=== PATIENT | male | born 1955 | race Caucasian/White ===

== ENCOUNTER 2017-02-19 07:41 | Emergency (ER) | payer OTHER ==
[~2017-02-19] VITALS: Ht 162.6 cm; Wt 89.0 kg
[~2017-02-19 07:41] MED LIST: CHLO25CA9 PO
[2017-02-19 07:44] VITALS: Ht 162.6 cm; Wt 89.0 kg
--- NOTE | 2017-02-19 09:16 | ERD ---
ER Documentation Chief Complaint Date/Time DATE: 02/19/17 TIME: 09:14 Chief Complaint bingd etoh x 1 days, today uncontrolled moves on face HPI Patient is a 61-year-old male who presents with sudden onset, intermittent, involuntary spasms of the muscles in his face and chest for several hours. The patient states that he has had these symptoms in the past after binge drinking, and that they have intermittently recurred over the last 4 years. He states that he has been drinking heavily for the last 3 days. He denies any history of prior seizures. He denies drug use. He denies fall or head trauma. He denies experiencing alcohol withdrawal. ROS All systems reviewed and are negative except as per history of present illness. Medications Home Meds Active Scripts Chlordiazepoxide* (Chlordiazepoxide*) 25 Mg Capsule, 25 MG PO as directed for 5 Days, CAP 50mg PO TID for day one 50mg PO BID for day two 25mg PO BID for day three 25mg PO Daily for day four and five Prov:NAT MORELAND MD 08/04/16 Allergies Allergies: Coded Allergies: No Known Allergy (Unverified , 08/04/16) PMhx/Soc Past medical history: None Past surgical history: None Social history: Drinks alcohol intermittently, denies tobacco or illicit drugs. History of Surgery: No Anesthesia Reaction: No Hx Neurological Disorder: Yes (seizures (possible etoh related)) Hx Respiratory Disorders: No Hx Cardiac Disorders: Yes (htn ) Hx Psychiatric Problems: No Hx Miscellaneous Medical Probl: Yes (etoh abuse) Hx Alcohol Use: Yes (alcoholic x30 years, 2 "fifths" in 2 days) Hx Substance Use: No Hx Tobacco Use: No FmHx Family History: No coronary disease, No diabetes Physical Exam Vitals Vital Signs Date Time Temp Pulse Resp B/P Pulse Ox O2 Delivery O2 Flow Rate FiO2 02/19/17 07:44 98.1 98 18 152/98 99 Physical Exam Const: Alert, no acute distress Head: Atraumatic Eyes: Normal Conjunctiva, no pallor, no icterus ENT: Normal External Ears, Nose and Mouth. Mucous membranes moist Neck: Full range of motion..~ No meningismus. Resp: Clear to auscultation bilaterally Cardio: Regular rate and rhythm, no murmurs Abd: Soft, non tender, non distended. No rebound or guarding Skin: No petechiae or rashes Back: No midline or flank tenderness Ext: No cyanosis, or edema Neur: Awake and alert, cranial nerves II through XII intact bilaterally, strength and sensation full in 4 extremities. Involuntary spastic movements of the face, neck, and chest muscles bilaterally. Intermittent. No altered mental status during episodes. Normal muscle tone. Psych: Normal Mood and Affect Result Diagram: 02/19/17924 Results 24 hrs Laboratory Tests Test 02/19/17 09:25 Sodium Level 140mmol/L Potassium Level 3.8mmol/L Chloride Level 107mmol/L Carbon Dioxide Level 22mmol/L Anion Gap 15 Blood Urea Nitrogen 14mg/dl Creatinine 0.83mg/dl Glucose Level 86mg/dl Calcium Level 8.6mg/dl Current Medications Medications (Trade) Dose Ordered Sig/Riley Route PRN Reason Start Time Stop Time Status Last Admin Dose Admin Sodium Chloride (NS) 1,000 ml @ 1,000 mls/hr Q1H ONCE IV 02/19/17 09:30 02/19/17 10:29 DC 02/19/17 09:28 Lorazepam (Ativan) 2 mg ONCE ONCE IV 02/19/17 09:30 02/19/17 09:31 DC 02/19/17 09:28 Procedures/MDM MDM: Patient is a 61-year-old male who presents with involuntary muscle spasms of the face neck and chest after 3 days of heavy drinking. He states that he has had similar symptoms in the past in the setting of alcohol abuse. He does not have signs or symptoms of alcohol withdrawal. He has involuntary twitching of the muscles on exam. I have low suspicion for focal motor seizures. The patient states that the symptoms have occurred intermittently over the last 4 years. He has never been diagnosed with a seizure disorder provided anticonvulsant medication. He has normal electrolytes. He was given IV fluids and a dose of Ativan, and his symptoms have resolved. I will discharge him home with return precautions, and have advised him to abstain from alcohol. Departure Diagnosis: Primary Impression: Muscle spasms of neck Additional Impression: Alcohol abuse Condition: YU Norton MD Feb 19, 2017 09:16
[2017-02-19] MEDS ORDERED: SOD CHLORIDE 0.9% 1,000 ML IV ONE (09:30)
[2017-02-19] MEDS ORDERED: LORAZEPAM 2 MG INJ IV ONE (09:30)
[2017-02-19 09:50] LABS: CALCIUM 8.6 mg/dl (8.4-10.2); CREATININE 0.83 mg/dl (0.61-1.24); POTASSIUM 3.8 mmol/L (3.5-5.1)
== END 2017-02-19 11:18 | disposition home or self-care (01) ==
LOC: E/R 07:41
DX: M62.838 Other muscle spasm (principal); I10 Essential (primary) hypertension
CPT/HCPCS: 80048; 96374; J2060; J7030; Z7502

== ENCOUNTER 2017-03-20 08:34 | Emergency (ER) | payer OTHER ==
[~2017-03-20] VITALS: Ht 167.6 cm; Wt 83.6 kg
[2017-03-20 08:36] VITALS: Ht 167.6 cm; Wt 83.6 kg
[2017-03-20] MEDS ORDERED: SOD CHLORIDE 0.9% 1,000 ML IV STA (08:38)
[2017-03-20] MEDS ORDERED: ONDANSETRON 4 MG INJ IV STA (08:38)
--- NOTE | 2017-03-20 08:45 | ERD ---
ER Documentation Chief Complaint Date/Time DATE: 03/20/17 TIME: 08:45 Chief Complaint ALCOHOL WITHDRAWL SEIZURE AT HOME, BS-[id number] IN FIELD HPI Patient is a 61-year-old male who presents with sudden onset, intermittent, involuntary spasms of the muscles in his face and chest for several hours. The patient states that he has had these symptoms in the past after binge drinking, and that they have intermittently recurred over the last 4 years. He states that he has been drinking heavily for the last 3 days. He he states he has a history of seizures, but denies antiepileptic medication use. He denies drug use. He denies fall or head trauma. Patient denies fevers or chills, no vomiting or diarrhea, no paresis or paresthesias. Patient was transported here by EMS without further complications. ROS All systems reviewed and are negative except as per history of present illness. Medications Home Meds Active Scripts Chlordiazepoxide* (Chlordiazepoxide*) 25 Mg Capsule, 25 MG PO as directed for 5 Days, CAP 50mg PO TID for day one 50mg PO BID for day two 25mg PO BID for day three 25mg PO Daily for day four and five Prov:NAT MORELAND MD 08/04/16 Allergies Allergies: Coded Allergies: No Known Allergy (Unverified , 08/04/16) PMhx/Soc History of Surgery: No Anesthesia Reaction: No Hx Neurological Disorder: Yes (seizures (possible etoh related)) Hx Respiratory Disorders: No Hx Cardiac Disorders: Yes (htn ) Hx Psychiatric Problems: No Hx Miscellaneous Medical Probl: Yes (etoh abuse) Hx Alcohol Use: Yes (alcoholic x30 years, 2 "fifths" in 2 days) Hx Substance Use: No Hx Tobacco Use: No Smoking Status: Never smoker FmHx Family History: No diabetes Physical Exam Vitals Vital Signs Date Time Temp Pulse Resp B/P Pulse Ox O2 Delivery O2 Flow Rate FiO2 03/20/17 12:10 98.3 88 20 141/79 99 Room Air 03/20/17 11:00 98.3 87 20 143/69 98 Room Air 03/20/17 08:36 99.2 101 16 144/72 100 Physical Exam GENERAL: Well-developed, well-nourished, appears to be in alcohol withdrawal with oral facial spasms HEENT: Moist mucous membranes, pink conjunctiva, no cervical spine tenderness or step-off deformities, no goiter, no jaundice or icterus, extraocular movements intact without pain. No submandibular induration, and no pharyngeal erythema NEURO: Alert and oriented 3, cranial nerves II through XII intact bilaterally, pupils equal round reactive to light, no focal deficits or facial asymmetry, sensation intact distally Strength 5/5 in upper and lower extremities bilaterally, positive oral facial spasms and upper extremity tremors, no seizure activity CARDIAC: Tachycardic and regular, no murmurs rubs or gallops LUNGS: Clear bilaterally no wheezing crackles or stridor ABDOMEN: Soft nontender, no guarding, no rigidity, no rebound, no psoas sign no obturator sign. Normoactive bowel sounds SKIN: Warm and dry to touch, no abrasions, contusions, or hematomas, no lacerations, no ecchymosis, no target lesions, and without ulcers EXTREMITIES: No clubbing cyanosis or edema, calves are bilaterally symmetrical, no Homans sign, no popliteal cord sign. Distal pulses equal and bilateral PSYCH: Normal affect without agitation or irritability Result Diagram: 03/20/1746 03/20/1746 Results 24 hrs Laboratory Tests Test 03/20/17 08:46 White Blood Count 4.510^3/ul Red Blood Count 4.2010^6/ul Hemoglobin 9.4g/dl Hematocrit 30.9% Mean Corpuscular Volume 73.6fl Mean Corpuscular Hemoglobin 22.4pg Mean Corpuscular Hemoglobin Concent 30.4g/dl Red Cell Distribution Width 17.2% Platelet Count 62258^3/UL Mean Platelet Volume 9.0fl Neutrophils % 39.0% Lymphocytes % 47.9% Monocytes % 7.3% Eosinophils % 4.9% Basophils % 0.7% Nucleated Red Blood Cells % 0.0/100WBC Neutrophils # 1.810^3/ul Lymphocytes # 2.210^3/ul Monocytes # 0.310^3/ul Eosinophils # 0.210^3/ul Basophils # 0.010^3/ul Nucleated Red Blood Cells # 0.010^3/ul Sodium Level 149mmol/L Potassium Level 3.6mmol/L Chloride Level 107mmol/L Carbon Dioxide Level 22mmol/L Anion Gap 24 Blood Urea Nitrogen 13mg/dl Creatinine 0.73mg/dl Glucose Level 107mg/dl Calcium Level 8.0mg/dl Total Bilirubin 0.3mg/dl Direct Bilirubin 0.00mg/dl Indirect Bilirubin 0.3mg/dl Aspartate Amino Transf (AST/SGOT) 31IU/L Alanine Aminotransferase (ALT/SGPT) 38IU/L Alkaline Phosphatase 66IU/L Troponin I < 0.012ng/ml Total Protein 6.9g/dl Albumin 3.9g/dl Globulin 3.00g/dl Albumin/Globulin Ratio 1.30 Lipase 40U/L Ethyl Alcohol Level 70.0mg/dl Current Medications Medications (Trade) Dose Ordered Sig/Riley Route PRN Reason Start Time Stop Time Status Last Admin Dose Admin Lorazepam 1 mg 1 mg ONCE ONCE IV 03/20/17 09:00 03/20/17 09:01 DC 03/20/17 09:00 Sodium Chloride (NS) 1,000 ml @ 1,000 mls/hr Q1H STAT IV 03/20/17 08:38 03/20/17 09:37 DC 03/20/17 09:01 Ondansetron HCl (Zofran Inj) 4 mg ONCE STAT IV 03/20/17 08:38 03/20/17 08:40 DC 03/20/17 09:00 Procedures/MDM IV line was established and patient was placed on cardiac sonographer rhythm strip revealed a sinus tachycardia at 100 bpm. Patient was afebrile. I treated the patient with 1 L normal saline intravenously and lorazepam 1 mg IV with good response. Also administered Zofran 4 mg IV 1. EKG performed, read by me revealed a sinus tachycardia at 100 bpm, normal axis, narrow QRS complex, no concerning ST elevations or depressions noted. CBC and electrolytes are normal, liver function tests normal, troponin negative. Ethanol level elevated at 70 consistent with alcohol withdrawal. Differential diagnoses considered, included but not limited to acute coronary syndrome, pulmonary embolism, aortic dissection, abdominal aortic aneurysm, sepsis, stroke, meningitis, encephalitis, pneumonia, appendicitis, cholecystitis , bowel obstruction, pyelonephritis, nephrolithiasis, cystitis, as well as metabolic, hematologic, and electrolyte abnormalities. As well as abscess, cellulitis, fractures, and dislocations. Patient feels much better at this time, and vital signs are normal, symptoms have improved. I did give strict instructions to return to the ED if symptoms continue or worsen, patient will otherwise follow-up with primary care physician. Patient understood instructions and agreed to plan. Disclaimer: Inadvertent spelling and grammatical errors are likely due to EHR/ dictation software use and do not reflect on the overall quality of patient care. Also, please note that the electronic time recorded on this note does not necessarily reflect the actual time of the patient encounter. Departure Diagnosis: Primary Impression: Seizure disorder Additional Impressions: Alcohol withdrawal syndrome Complication of substance-induced condition: with unspecified complication Qualified Code: F10.239 - Alcohol withdrawal syndrome, with unspecified complication Dehydration Condition: AUDREY Velasquez MD Mar 20, 2017 08:45
[2017-03-20] MEDS ORDERED: LORAZEPAM 2 MG INJ IV ONE (09:00)
[2017-03-20 09:09] LABS: BASOPHILS % 0.7 % (0.0-2.0); EOSINOPHILS # 0.2 10^3/ul (0.0-0.5); EOSINOPHILS % 4.9 % (0.0-7.0); HEMATOCRIT 30.9 % (42.0-52.0); HEMOGLOBIN 9.4 g/dl (14.0-18.0); LYMPHOCYTES # 2.2 10^3/ul (0.8-2.9); LYMPHOCYTES % 47.9 % (15.0-51.0); MEAN CORPUSCULAR HEMOGLOBIN 22.4 pg (29.0-33.0); MEAN CORPUSCULAR HGB CONC 30.4 g/dl (32.0-37.0); MEAN CORPUSCULAR VOLUME 73.6 fl (82.0-101.0); MONOCYTE # 0.3 10^3/ul (0.3-0.9); MONOCYTES % 7.3 % (0.0-11.0); NEUTROPHIL # 1.8 10^3/ul (1.6-7.5); PLATELET COUNT 234 10^3/UL (140-415); RED CELL DISTRIBUTION WIDTH 17.2 % (11.5-14.5); WHITE BLOOD COUNT 4.5 10^3/ul (4.8-10.8)
--- NOTE | 2017-03-20 09:17 | RADRPT ---
PROCEDURE: XR Chest. CLINICAL INDICATION: Abdominal pain TECHNIQUE: Single frontal view of the chest was obtained COMPARISON: Chest x-ray 11/26/2015 FINDINGS: The patient is rotated slightly leftward. The cardiac silhouette is borderline large. Again seen are hazy opacities at both lung bases which may be on the basis of atelectasis. No pneumothorax, significant pleural effusion, or new parenchymal consolidation is identified. There are degenerative changes of the visualized spine. IMPRESSION: 1. Borderline cardiomegaly. 2. Hazy opacities at both lung bases, not significant change compared to prior study and likely rep resenting atelectasis. Early consolidation cannot be completely excluded. RPTAT: PP Physician Skyler Date Time Electronically viewed and signed by Physician Skyler on 03/20/2017 09:17 /
[2017-03-20 09:26] LABS: ALANINE AMINOTRANSFERASE 38 IU/L (13-69); ALBUMIN 3.9 g/dl (3.3-4.9); ALKALINE PHOSPHATASE 66 IU/L (42-121); ANION GAP 24 (8-16); ASPARTATE AMINO TRANSFERASE 31 IU/L (15-46); BILIRUBIN,INDIRECT 0.3 mg/dl (0-1.1); BILIRUBIN,TOTAL 0.3 mg/dl (0.2-1.3); BLOOD UREA NITROGEN 13 mg/dl (7-20); CARBON DIOXIDE 22 mmol/L (21-31); CHLORIDE 107 mmol/L (97-110); CREATININE 0.73 mg/dl (0.61-1.24); GLUCOSE 107 mg/dl (70-220); POTASSIUM 3.6 mmol/L (3.5-5.1); SODIUM 149 mmol/L (135-144); TOTAL PROTEIN 6.9 g/dl (6.1-8.1)
[2017-03-20 09:49] LABS: TROPONIN-I < 0.012 ng/ml (0.00-0.12)
[2017-03-20 12:10] VITALS: BP 141/79; PULSE 88; RESP 20; TEMP 98.3
== END 2017-03-20 12:11 | disposition home or self-care (01) ==
LOC: E/R 08:34
DX: G40.909 Epilepsy, unspecified, not intractable, without status epilepticus (principal); E86.0 Dehydration; I10 Essential (primary) hypertension; R40.2142 Coma scale, eyes open, spontaneous, at arrival to emergency department; R40.2252 Coma scale, best verbal response, oriented, at arrival to emergency department; R40.2362 Coma scale, best motor response, obeys commands, at arrival to emergency department
CPT/HCPCS: 36415; 71010; 80053; 80306; 83690; 84484; 85025; 93005; 96374; 96375; J2060; J2405; J7030; Z7502

== ENCOUNTER 2017-06-05 10:07 | Emergency (ER) | payer OTHER ==
[~2017-06-05] VITALS: Ht 165.1 cm; Wt 77.3 kg
[2017-06-05 10:11] VITALS: Ht 165.1 cm; Wt 77.3 kg
[2017-06-05] MEDS ORDERED: LORAZEPAM 2 MG INJ IV ONE (11:30)
--- NOTE | 2017-06-05 11:39 | ERD ---
ER Documentation Chief Complaint Date/Time DATE: 06/05/17 TIME: 11:36 Chief Complaint CAME IN AND STATED HE FEELS LIKE HAVING SEIZURE DRANK AT 4AM THIS MORNING HPI Patient is a 61-year-old male with history of alcohol abuse who presents stating that he feels shaky and thinks he might have a seizure after having his last drink at 4 AM this morning. The patient reports that when he stops drinking he gets twitching in the muscles of his face and arms. He reports that 3 years ago he had an alcohol withdrawal seizure. He has never had seizure in the absence of alcohol withdrawal. He has not had a seizure since then. He has had multiple visits to this ER with similar symptoms in the past. He denies fall or trauma, denies coingestants, denies vomiting. ROS All systems reviewed and are negative except as per history of present illness. Medications Home Meds Discontinued Scripts Chlordiazepoxide* (Chlordiazepoxide*) 25 Mg Capsule, 25 MG PO as directed for 5 Days, CAP 50mg PO TID for day one 50mg PO BID for day two 25mg PO BID for day three 25mg PO Daily for day four and five Prov:NAT MORELAND MD 08/04/16 Allergies Allergies: Coded Allergies: No Known Allergy (Unverified , 08/04/16) PMhx/Soc Past medical history: Alcohol abuse, Hypertension, alcohol withdrawal seizure Past surgical history: Denies Social history: Drinks alcohol, denies daily use. Denies illicit drugs or tobacco History of Surgery: No Anesthesia Reaction: No Hx Neurological Disorder: Yes (SEIZURES, TWITCHING) Hx Respiratory Disorders: No Hx Cardiac Disorders: No Hx Psychiatric Problems: No Hx Miscellaneous Medical Probl: Yes (ALCOHOL ABUSE, TWITCHING) Hx Alcohol Use: Yes (ALCOHAL ABUSE) Hx Substance Use: No Hx Tobacco Use: No Smoking Status: Never smoker FmHx Family History: No coronary disease, No diabetes Physical Exam Vitals Vital Signs Date Time Temp Pulse Resp B/P Pulse Ox O2 Delivery O2 Flow Rate FiO2 06/05/17 10:11 99.1 117 18 127/81 97 Physical Exam Const: Alert, no acute distress Head: Atraumatic Eyes: Normal Conjunctiva, No pallor, no icterus ENT: Normal External Ears, Nose and Mouth. Mucous membranes moist, no tongue fasciculations Neck: Full range of motion..~ No meningismus. Resp: Clear to auscultation bilaterally, No wheezes, no rales Cardio: Regular rate and rhythm, no murmurs Abd: Soft, non tender, non distended. Skin: No petechiae or rashes Back: No midline or flank tenderness Ext: No cyanosis, or edema Neur: Awake and alert, Cranial nerves II through XII intact bilaterally, strength and sensation full in 4 extremities. When I am not in the room and observing the patient, I do not observe any twitching motions. While talking to the patient, he has muscle spasms of the face and right arm Psych: Normal Mood and Affect Result Diagram: 06/05/17 1150 Results 24 hrs Laboratory Tests Test 06/05/17 11:50 Sodium Level 141mmol/L Potassium Level 3.9mmol/L Chloride Level 106mmol/L Carbon Dioxide Level 22mmol/L Anion Gap 17 Blood Urea Nitrogen 9mg/dl Creatinine 0.86mg/dl Glucose Level 85mg/dl Calcium Level 8.4mg/dl Ethyl Alcohol Level 65.0mg/dl Current Medications Medications (Trade) Dose Ordered Sig/Riley Route PRN Reason Start Time Stop Time Status Last Admin Dose Admin Lorazepam (Ativan) 1 mg ONCE ONCE IV 06/05/17 11:30 06/05/17 11:33 DC 06/05/17 12:03 Procedures/MDM MDM: Patient is a 61-year-old male who has recurrent visits to the ER for twitching of muscles that he associates with alcohol withdrawal. The patient states that he feels like he is going to have a seizure. The muscle twitches only occur when he is aware that is being observed, and on several episodes of observation without the patient's knowledge, this was not observed at all. I have very low suspicion for focal seizures. The patient has not had a seizure in 3 years. He has no tachycardia or tremor. He has normal electrolytes and mild residual alcohol level. I do not believe that further treatment for alcohol withdrawal is warranted at this time, and the patient denies daily drinking. He has had multiple presentations to the ER for the same symptoms without complication. He is advised to follow-up with a neurologist as an outpatient for further workup as needed. He is advised to abstain from alcohol and return for increasing tremulousness or other concerns. Departure Diagnosis: Primary Impression: Alcohol withdrawal Complication of substance-induced condition: uncomplicated Qualified Code: F10.230 - Alcohol withdrawal syndrome without complication Additional Impression: Muscle twitching Condition: Good YU TAN MD Jun 05, 2017 11:39
[2017-06-05 13:35] LABS: CALCIUM 8.4 mg/dl (8.4-10.2); CREATININE 0.86 mg/dl (0.61-1.24); POTASSIUM 3.9 mmol/L (3.5-5.1)
[2017-06-05 15:34] VITALS: BP 118/80; PULSE 77; RESP 18; TEMP 98
== END 2017-06-05 15:41 | disposition home or self-care (01) ==
LOC: E/R 10:07
DX: F10.230 Alcohol dependence with withdrawal, uncomplicated (principal); R25.3 Fasciculation; I10 Essential (primary) hypertension; R40.2142 Coma scale, eyes open, spontaneous, at arrival to emergency department; R40.2252 Coma scale, best verbal response, oriented, at arrival to emergency department; R40.2362 Coma scale, best motor response, obeys commands, at arrival to emergency department
CPT/HCPCS: 80048; 80306; 96374; J2060; Z7502

== ENCOUNTER 2017-10-21 03:49 | Emergency (ER) | END 2017-10-21 10:45 | disposition home or self-care (01) ==

== ENCOUNTER 2017-10-24 13:35 | Emergency (ER) | END 2017-10-24 19:34 | disposition home or self-care (01) ==

== ENCOUNTER 2018-03-03 10:59 | Emergency (ER) | END 2018-03-03 13:45 | disposition home or self-care (01) ==

== ENCOUNTER 2019-03-13 16:57 | Emergency (ER) | payer OTHER ==
[~2019-03-13] VITALS: Ht 162.6 cm; Wt 80.0 kg
[~2019-03-13 16:57] MED LIST changes: -CHLO25CA9 PO; +CLIN300C10 PO; +IBUP-1542 PO; +PRED20TA PO
[2019-03-13] MEDS ORDERED: LIDOCAINE/MYLANTA 40 ML BTL PO STA (17:06)
[2019-03-13] MEDS ORDERED: ONDANSETRON 4 MG INJ IV STA (17:06)
[2019-03-13] MEDS ORDERED: BELLADONNA/PHENOBARBITAL TAB PO STA (17:06)
[2019-03-13] MEDS ORDERED: KETOROLAC 15 MG INJ IV STA (17:06)
[2019-03-13] MEDS ORDERED: SOD CHLORIDE 0.9% 1,000 ML IV STA (17:06)
--- NOTE | 2019-03-13 17:10 | ERD ---
ER Documentation Chief Complaint Chief Complaint HPI 63-year-old man with history of alcoholism and alcohol withdrawal syndrome prese nts with paresthesias, belching, nausea and feeling like he is withdrawing. He states he has upper extremity tremors but denies seizure activity, no recent loss of consciousness, no chest pain or shortness of breath, no blood per rectum or melena. Patient states his last drink was a few days ago. ROS All systems reviewed and are negative except as per history of present illness. Medications Home Meds Active Scripts Chlordiazepoxide* (Chlordiazepoxide*) 10 Mg Capsule, 10 MG PO TID PRN for CONTROL WITHDRAWAL SYMPTOMS, #15 CAP Prov:AUDREY JOHNSON MD 03/13/19 Discontinued Scripts Ibuprofen* (Motrin*) 600 Mg Tab, 600 MG PO Q6, #30 TAB Prov:CYN MENENDEZ 10/24/17 Prednisone* (Prednisone*) 20 Mg Tab, 40 MG PO DAILY for 4 Days, TAB Prov:CYN MENENDEZ 10/24/17 Clindamycin Hcl* (Clindamycin Hcl*) 300 Mg Capsule, 300 MG PO TID for 10 Days, CAP Prov:CYN MENENDEZ 10/24/17 Allergies Allergies: Coded Allergies: No Known Allergy (Unverified , 03/13/19) PMhx/Soc Alcohol abuse, alcohol withdrawal seizures, GERD History of Surgery: No Anesthesia Reaction: No Hx Neurological Disorder: Yes (Alcohol withdrawal seizure) Hx Respiratory Disorders: No Hx Cardiac Disorders: No Hx Psychiatric Problems: No Hx Miscellaneous Medical Probl: Yes (ETOH) Hx Alcohol Use: Yes Hx Substance Use: No Hx Tobacco Use: No FmHx Family History: No diabetes Physical Exam Vitals Vital Signs Date Temp Pulse Resp B/P (MAP) Pulse Ox O2 O2 Flow FiO2 Time Delivery Rate 03/13/19 98.0 92 19 110/77 100 Room Air 19:33 (88) 03/13/19 98.9 81 16 137/67 96 Room Air 18:39 (90) 03/13/19 97.9 95 18 140/85 99 17:17 (103) Per nursing records Physical Exam GENERAL: Well-developed, well-nourished, belching, nauseous, afebrile HEENT: Moist mucous membranes, pink conjunctiva, no cervical spine tenderness or step-off deformities, no goiter, no jaundice or icterus, extraocular movements intact without pain. No submandibular induration, and no pharyngeal erythema NEURO: Alert and oriented 3, cranial nerves II through XII intact bilaterally, pupils equal round reactive to light, no focal deficits or facial asymmetry, sensation intact distally Strength 5/5 in upper and lower extremities bilaterally CARDIAC: Tachycardic and regular, no murmurs rubs or gallops LUNGS: Clear bilaterally no wheezing crackles or stridor ABDOMEN: Soft nontender, no guarding, no rigidity, no rebound, no psoas sign no obturator sign. SKIN: Warm and dry to touch, no abrasions, contusions, or hematomas, no lacerations, no ecchymosis, no target lesions, and without ulcers EXTREMITIES: No clubbing cyanosis or edema, calves are bilaterally symmetrical, no Homans sign, no popliteal cord sign. Distal pulses equal and bilateral PSYCH: Normal affect without agitation or irritability Result Diagram: 03/13/19 1720 03/13/19 1720 Results 24 hrs Laboratory Tests Test 03/13/19 17:20 White Blood Count 6.4 10^3/ul Red Blood Count 4.77 10^6/ul Hemoglobin 10.1 g/dl Hematocrit 33.4 % Mean Corpuscular Volume 70.0 fl Mean Corpuscular Hemoglobin 21.2 pg Mean Corpuscular Hemoglobin Concent 30.2 g/dl Red Cell Distribution Width 19.2 % Platelet Count 162 10^3/UL Mean Platelet Volume 9.0 fl Immature Granulocytes % 0.300 % Neutrophils % 81.0 % Lymphocytes % 13.3 % Monocytes % 4.4 % Eosinophils % 0.2 % Basophils % 0.8 % Nucleated Red Blood Cells % 0.0 /100WBC Immature Granulocytes # 0.020 10^3/ul Neutrophils # 5.2 10^3/ul Lymphocytes # 0.9 10^3/ul Monocytes # 0.3 10^3/ul Eosinophils # 0.0 10^3/ul Basophils # 0.1 10^3/ul Nucleated Red Blood Cells # 0.0 10^3/ul Sodium Level 139 mmol/L Potassium Level 3.5 mmol/L Chloride Level 101 mmol/L Carbon Dioxide Level 19 mmol/L Anion Gap 19 Blood Urea Nitrogen 8 mg/dl Creatinine 0.76 mg/dl Est Glomerular Filtrat Rate mL/min > 60 mL/min Glucose Level 106 mg/dl Calcium Level 9.0 mg/dl Total Bilirubin 0.6 mg/dl Direct Bilirubin 0.00 mg/dl Indirect Bilirubin 0.6 mg/dl Aspartate Amino Transf (AST/SGOT) 30 IU/L Alanine Aminotransferase (ALT/SGPT) 26 IU/L Alkaline Phosphatase 87 IU/L Troponin I < 0.012 ng/ml Total Protein 7.5 g/dl Albumin 4.1 g/dl Globulin 3.40 g/dl Albumin/Globulin Ratio 1.20 Lipase 68 U/L Ethyl Alcohol Level 23.0 mg/dl Current Medications Medications Dose Sig/Riley Start Time Status Last (Trade) Ordered Route PRN Stop Time Admin Dose Reason Admin Sodium 1,000 ml @ Q1H STAT 03/13/19 DC 03/13/19 Chloride 1,000 mls/hr IV 17:06 17:27 03/13/19 18:05 Ondansetron 4 mg ONCE STAT 03/13/19 DC 03/13/19 HCl (Zofran IV 17:06 17:26 Inj) 03/13/19 17:08 40 ml ONCE STAT 03/13/19 DC 03/13/19 Miscellaneous PO 17:06 17:27 Medication 03/13/19 17:08 (Gi Cocktail (2)) Belladonna/ 2 tab ONCE STAT 03/13/19 DC 03/13/19 Phenobarbital PO 17:06 17:27 () 03/13/19 17:08 Ketorolac 15 mg ONCE STAT 03/13/19 DC 03/13/19 Tromethamine IV 17:06 17:27 (Toradol) 03/13/19 17:08 Lorazepam 1 mg ONCE ONCE 03/13/19 DC 03/13/19 (Ativan) IV 17:30 17:27 03/13/19 17:31 Procedures/MDM IV line was established patient was placed on air traffic control specialist center rhythm strip revealed a narrow complex tachycardia at 120 bpm with upright P and T waves. Patient was afebrile EKG performed, read by me revealed a sinus tachycardia at 118 bpm, normal axis, narrow QRS complex, no concerning ST elevations or depressions noted One AP view of the chest performed, read by me reveals no acute infiltrates, n ormal mediastinum, sharp costophrenic and cardiac borders, no air under the diaphragm. Otherwise unremarkable chest x-ray. I administered 1 L normal saline IV, Toradol 15 mg IV, Zofran 4 mg IV, GI co cktail p.o., lorazepam 1 mg IV x1 CBC and electrolytes are normal, liver function tests were normal, troponin was negative, ethanol level was low. Observation Note: Time: 4-1/2 hours Family Hx: No Hypertension Evaluation: Multiple exams showed improving symptoms and no evidence of worsening mental status or seizure activity Differential diagnoses considered, included but not limited to acute coronary syndrome, pulmonary embolism, aortic dissection, abdominal aortic aneurysm, sepsis, stroke, meningitis, encephalitis, pneumonia, appendicitis, cholecystitis, bowel obstruction, pyelonephritis, nephrolithiasis, cystitis, as well as metabolic, hematologic, and electrolyte abnormalities. As well as abscess, cellulitis, fractures, and dislocations. Patient feels much better at this time, and vital signs are normal, symptoms have improved. I did give strict instructions to return to the ED if symptoms continue or worsen, patient will otherwise follow-up with primary care physician. Patient understood instructions and agreed to plan. Disclaimer: Inadvertent spelling and grammatical errors are likely due to EHR/dictation software use and do not reflect on the overall quality of patient care. Also, please note that the electronic time recorded on this note does not necessarily reflect the actual time of the patient encounter. Departure Diagnosis: Primary Impression: Alcohol withdrawal syndrome Complication of substance-induced condition: with unspecified complication Qualified Codes: F10.239 - Alcohol dependence with withdrawal, unspecified Additional Impression: Alcohol abuse Condition: AUDREY Velasquez MD Mar 13, 2019 17:10
[2019-03-13 17:17] VITALS: Ht 162.6 cm; Wt 80.0 kg
[2019-03-13] MEDS ORDERED: LORAZEPAM 2 MG INJ IV ONE (17:30)
[2019-03-13] MEDS ORDERED: CHLO10CA6 PO (18:16)
[2019-03-13 19:33] VITALS: BP 110/77; PULSE 92; RESP 19
== END 2019-03-13 19:36 | disposition home or self-care (01) ==
LOC: E/R 16:57
DX: F10.239 Alcohol dependence with withdrawal, unspecified (principal)
CPT/HCPCS: 36415; 71045; 80053; 80307; 83690; 84484; 85025; 96361; 96374; 96375; 99284; J1885; J2060; J2405; J7030